=== PATIENT | female | born 1985 | race Caucasian/White ===

== ENCOUNTER 2018-09-07 04:40 | Inpatient (IN) ==
[2018-09-05 15:38] LABS: BASO# 0.02 X1000 (0.0-0.2); BASO% 0.2 % (0.0-0.8); EOS# 0.04 X1000 (0.0-0.7); EOS% 0.4 % (0.0-10.0); HEMATOCRIT 34.9 % (37.0-47.0); HEMOGLOBIN 11.2 g/dL (12.0-16.0); IMM GRAN# 0.04 X1000 (0.0-0.04); IMM GRAN% 0.4 % (0.0-0.5); LYMPH# 2.69 X1000 (1.2-3.4); LYMPH% 24.1 % (20.5-51.1); MCH 27.9 PG (27-31); MCHC 32.1 g/dL (33-37); MCV 86.8 FL (81-99); MONO# 0.47 X1000 (0.11-0.59); MONO% 4.2 % (1.7-9.3); MPV 9.8 FL (7.4-10.4); NEUT# 7.88 X1000 (1.4-6.5); NEUT% 70.7 % (42.2-75.2); PLT 290 X1000 (130-400); RBC 4.02 XMIL (4.2-5.4); RDW 13.2 % (11.5-14.5); WBC 11.14 X1000 (4.8-10.8)
--- NOTE | 2018-09-06 10:52 | HISTORY AND PHYSICAL ---
HISTORY OF PRESENT ILLNESS: The patient is a 32-year-old, white female, G 3, P 2, at 39 weeks gestation for repeat section. She has a history of 2 prior sections. The patient's care is unremarkable so far, and she has expressed the desire for permanent sterilization. PAST MEDICAL HISTORY: Significant for PTSD, which she has been on treatment for in the past. PAST SURGICAL HISTORY: Significant for section x2, as well as left leg tumor removal that was benign. PAST OBSTETRICAL HISTORY: G3, P2, x2. GYNECOLOGICAL HISTORY: Menarche at age 16. FAMILY HISTORY: Significant for diabetes mellitus and myocardial infarction. SOCIAL HISTORY: Tobacco use: Half a pack per day of tobacco. Alcohol use: None. MEDICATIONS: Iron, vitamins, and Pepcid. ALLERGIES: No known drug allergies. PHYSICAL EXAMINATION: Height: 5 feet 2 inches. Weight: 148 pounds. VITAL SIGNS: Blood pressure 142/86, pulse of 84, respirations 20. heart rate in the 150s. HEENT: Pupils equal, round, reactive to light and accommodation. Extraocular movements intact. Oropharynx clear. NECK: Supple. No thyromegaly. LUNGS: Clear to auscultation. HEART: Regular rate and rhythm. ABDOMEN: Gravid. Nontender. EXTREMITIES: No clubbing, cyanosis, or edema noted. NEUROLOGIC: Cranial nerves 2-12 grossly intact. Motor 5/5. ASSESSMENT AND PLAN: A 32-year-old, white female, G 3, P 2, at 39 weeks gestation with a history of section x2 for repeat section as well as tubal ligation. The patient counseled about the risks of surgery including bleeding, infection, bowel or bladder injury. The patient also counseled about the permanency of tubal ligation, failure rate of 2 to 11/999, as well as the availability of reversible alternatives such as IUD, control pills, patches, etc. Surgery is scheduled for 09/07/2018. cc: Cordell Christianson III, MD
[2018-09-07] MEDS ORDERED: KEFZOL 1 GM/D5W 1 GM/50 ML IVPB IV PRN (04:54)
[2018-09-07] MEDS: LR 1,000 ML IV SCH ×2 (05:20→06:41)
[2018-09-07 05:27] LABS: URINE SOURCE VOIDED
[2018-09-07] MEDS ORDERED: BICITRA PO ONE (05:30)
[2018-09-07] MEDS ORDERED: REGLAN IV ONE (05:30)
[2018-09-07] MEDS ORDERED: SODIUM CHLORIDE 0.9% INJ ONE (05:30)
[2018-09-07] MEDS ORDERED: PEPCID IV ONE (05:30)
[2018-09-07 05:51] LABS: BILIRUBIN URINE NEGATIVE (NEGATIVE); BLOOD URINE NEGATIVE (NEGATIVE); CLARITY CLEAR (CLEAR); COLOR YELLOW; GLUCOSE URINE NEGATIVE (NEGATIVE); KETONE URINE NEGATIVE (NEGATIVE); LEUKOCYTES URINE 2+ (NEGATIVE); NITRITE URINE NEGATIVE (NEGATIVE); PROTEIN URINE NEGATIVE (NEGATIVE); UROBILINOGEN URINE NORMAL
[2018-09-07 05:52] LABS: UR AMPHETAMINES QUAL NONE DETECTED (NONE DETECT); UR BARBITUATES QUAL NONE DETECTED (NONE DETECT); UR BENZODIAZEPIN QUAL NONE DETECTED (NONE DETECT); UR CANNABINOIDS QUAL NONE DETECTED (NONE DETECT); UR COCAINE QUAL NONE DETECTED (NONE DETECT); UR METHADONE QUAL NONE DETECTED (NONE DETECT); UR METHAMPHETAMINE QUAL NONE DETECTED (NONE DETECT); UR OPIATES QUAL NONE DETECTED (NONE DETECT); UR OXYCODONE QUAL NONE DETECTED (NONE DETECT); UR PCP QUAL NONE DETECTED (NONE DETECT); UR PROPOXYPHENE QUAL NONE DETECTED (NONE DETECT); UR TCA QUAL NONE DETECTED (NONE DETECT)
[2018-09-07] MEDS ORDERED: DURAMORPH ONE (07:05)
[2018-09-07] MEDS ORDERED: TORADOL ONE (08:05)
[2018-09-07] MEDS ORDERED: SODIUM CHLORIDE 0.9% 10 ML ONE (08:05)
[2018-09-07] MEDS ORDERED: NEO-SYNEPHRINE ONE (08:05)
[2018-09-07] MEDS ORDERED: PITOCIN ONE ×2 (08:05→20:27)
[2018-09-07] MEDS ORDERED: ZOFRAN ONE (08:05)
[2018-09-07] MEDS ORDERED: ATARAX PO PRN (08:39)
[2018-09-07] MEDS ORDERED: PITOCIN 20 UNITS/NS 20 UNITS/1,000 ML IV.SOLN IV ONE (08:39)
[2018-09-07] MEDS ORDERED: BOOSTRIX VACCINE IM ONE (08:39)
[2018-09-07] MEDS ORDERED: PITOCIN IM PRN (08:39)
[2018-09-07] MEDS ORDERED: MYLICON PO PRN (08:39)
[2018-09-07] MEDS ORDERED: M-M-R II VACCINE SUBQ ONE (08:39)
[2018-09-07] MEDS ORDERED: PHENERGAN IM PRN (08:39)
[2018-09-07] MEDS ORDERED: NORCO-5 PO PRN (08:39)
[2018-09-07] MEDS ORDERED: HYDROXYZINE IM PRN (08:39)
[2018-09-07] MEDS ORDERED: DEMEROL PO PRN (08:39)
[2018-09-07] MEDS ORDERED: DULCOLAX PR PRN (08:39)
[2018-09-07] MEDS ORDERED: AMBIEN PO PRN (08:39)
[2018-09-07] MEDS ORDERED: PITOCIN 10 UNITS/LR 10 UNIT/1,000 ML IV.SOLN IV SCH (08:45)
[2018-09-07] MEDS ORDERED: BENADRYL IV PRN (08:52)
[2018-09-07] MEDS ORDERED: NARCAN INJ PRN (08:52)
[2018-09-07] MEDS ORDERED: ZOFRAN ODT PO PRN (08:52)
[2018-09-07] MEDS ORDERED: ZOFRAN IV PRN ×2 (08:52)
--- NOTE | 2018-09-07 09:02 | OPERATIVE NOTE ---
PROCEDURE DATE: 09/07/2018 PREOPERATIVE DIAGNOSIS: Intrauterine at 39-0/7 weeks for repeat section as well as tubal ligation. POSTOPERATIVE DIAGNOSES: 1. Intrauterine at 39-0/7 weeks for repeat section as well as tubal ligation. 2. Operative delivery of a female, 5 pounds 12 ounces with Apgars of 9 and 10 at 0746 on 09/07/2018. PROCEDURE PERFORMED: 1. Repeat low transverse section. 2. Bilateral tubal ligation. SURGEON: Cordell Christianson III, MD. ASSIST: Sidra Jenkins RN. ANESTHESIA: Spinal, Dr. Eron MD. FINDINGS: Normal-appearing uterus, tubes, and ovaries. COMPLICATIONS: None. ESTIMATED BLOOD LOSS: 400 mL. SPECIMENS REMOVED: Right and left fallopian tube segments. DRAINS: Jackson to straight drain. COUNTS: All counts were correct x3. INDICATIONS: Patient is a 32-year-old white female G3, P2, at 39 weeks gestation with a history of prior section x2. Patient also expressed desire for permanent sterilization. She has signed Medicaid tubal papers, and we will perform this after her section. Patient counseled about the permanency of the procedure, failure rate of 2 to 11/999, as well as the availability of reversible alternatives such as IUD, control pills patches, etc. The patient also counseled about the risks of surgery including bleeding, infection, bowel, or bladder injury. DESCRIPTION OF PROCEDURE: The patient was taken to OB OR. Spinal anesthesia was placed. The patient was placed in supine position. She was then prepped and draped in a sterile fashion with placement of Jackson catheter, and adequate anesthesia was noted by using Allis clamps on skin. Then a Pfannenstiel skin incision made on lower abdomen using scalpel. This was then taken down sharply through the fascial layer. Small rashi was made in the rectus fascia. The rectus fascia was then extended bilaterally by curved Tipton scissors, and then blunt and sharp dissection of the rectus fascia was performed using electrocautery and the superior and inferior aspects of the rectus fascia. The rectus muscles divided in the midline. Peritoneal layer was entered bluntly. The peritoneal incision was extended superiorly and inferiorly with care taken to avoid the bladder. The bladder reflection was dissected with Metzenbaum scissors and then bladder blade was placed into the abdominal cavity. The low transverse incision was made on the uterus, and then this incision was then extended bilaterally by the surgeon's fingers. A small amount of light meconium was noted upon entry into the amniotic cavity. head was then elevated toward the hysterotomy site and with gentle fundal pressure, the head was delivered atraumatically. Bulb suction of nose and mouth. Then the rest the body was delivered atraumatically with gentle fundal pressure. The umbilical cord was clamped twice and cut. handed to nursery nurse in attendance for delivery. Cord blood samples obtained at this time. Placenta was then manually extracted. Uterus was exteriorized. Wet lap was placed around the uterus. Dry lap was then used to curette the uterine cavity of clots and debris x2. The uterine incision was then closed using 0 chromic in a running, locking fashion x1. A small area of oozing was noted on the left corner. This was made hemostatic with interrupted stitches of 0 chromic. At this point in time, the right fallopian tube was grasped with a Carlos clamp and then a small area in the mesosalpinx was penetrated using electrocautery and then #1 plain suture was then used to ligate a portion of the fallopian tube on the right side, and then this segment was then dissected using Metzenbaum scissors and handed over to be placed in a specimen container. Electrocautery was then used on the open ends of the fallopian tube as well as on the mesosalpinx, and good hemostasis was noted. On the left fallopian tube, this was grasped with a [place] clamp and then the area of the mesosalpinx was penetrated using electrocautery, and then #1 plain suture was then used to ligate dissection near the isthmus. This section was then excised using Metzenbaum scissors, and this portion was also handed off to be placed in a specimen container. Electrocautery was once again used on the open ends of the fallopian tube, and good hemostasis was noted here as well. The posterior cul-de-sac was then irrigated copiously. The uterus was then replaced back into the abdominal cavity. Good hemostasis was noted once again, where tubal ligation was performed, and then moistened lap sponges were used in the pericolic gutters bilaterally. Uterine incision and bladder reflection were inspected, and good hemostasis was noted. The fascial incision was then closed using 2-0 chromic in a running fashion x1. Two interrupted sutures placed in the rectus muscle to reapproximate this. Fascial layer was then closed using 0 PDS in a running fashion x1. Electrocautery was and irrigation were used in the subcutaneous tissue, and good hemostasis was noted. The skin was reapproximated using radha. Patient tolerated the procedure well, was taken to recovery in stable condition. All counts were correct x3. cc: Cordell Christianson III, MD
[2018-09-07] MEDS: PRECARE PO SCH (10:57)
[2018-09-07] MEDS: MYLICON PO SCH ×4 (10:57→20:33)
[2018-09-07] MEDS: TORADOL IV SCH ×3 (10:57→21:34)
[2018-09-07] MEDS: MORPHINE IV PRN ×2 (12:51→18:22)
[2018-09-07] MEDS ORDERED: OXYTOCIN ONE (20:26)
[2018-09-07] MEDS ORDERED: SODIUM CHLORIDE ONE (20:26)
[2018-09-07] MEDS ORDERED: LR 1,000 ML ONE (20:28)
[2018-09-07] MEDS: PERICOLACE PO SCH (20:33)
[2018-09-07] MEDS: CELEXA PO SCH (20:33)
[2018-09-08] MEDS: MORPHINE IV PRN (05:23)
[2018-09-08] MEDS: TORADOL IV SCH (05:23)
[2018-09-08 05:39] LABS: BASO# 0.02 X1000 (0.0-0.2); BASO% 0.1 % (0.0-0.8); EOS# 0.05 X1000 (0.0-0.7); EOS% 0.3 % (0.0-10.0); HEMOGLOBIN 9.5 g/dL (12.0-16.0); IMM GRAN# 0.05 X1000 (0.0-0.04); IMM GRAN% 0.3 % (0.0-0.5); LYMPH# 2.37 X1000 (1.2-3.4); MCH 28.2 PG (27-31); MCHC 31.7 g/dL (33-37); MONO# 0.65 X1000 (0.11-0.59); MONO% 4.1 % (1.7-9.3); MPV 10.1 FL (7.4-10.4); NEUT# 12.61 X1000 (1.4-6.5); NEUT% 80.2 % (42.2-75.2); PLT 252 X1000 (130-400); RBC 3.37 XMIL (4.2-5.4); RDW 13.6 % (11.5-14.5); WBC 15.75 X1000 (4.8-10.8)
[2018-09-08] MEDS: PRECARE PO SCH (08:17)
[2018-09-08] MEDS: NORCO-10 PO PRN ×4 (08:17→23:10)
[2018-09-08] MEDS: MYLICON PO SCH ×4 (08:18→20:56)
[2018-09-08] MEDS ORDERED: LR 1,000 ML IV SCH (08:39)
[2018-09-08] MEDS: MOTRIN PO PRN ×2 (12:42→20:55)
[2018-09-08] MEDS: CELEXA PO SCH (20:55)
[2018-09-08] MEDS: PERICOLACE PO SCH (20:55)
[2018-09-08] MEDS ORDERED: SSD CREAM TOP SCH (21:00)
[2018-09-09] MEDS: NORCO-10 PO PRN (06:44)
[2018-09-09 07:23] VITALS: BP 138/86
[2018-09-09] MEDS ORDERED: PNEUMOVAX 23 IM ONE (08:30)
[2018-09-09] MEDS ORDERED: FLU VACCINE IM ONE (08:30)
[2018-09-09] MEDS: MYLICON PO SCH (09:19)
[2018-09-09] MEDS: PRECARE PO SCH (09:19)
--- NOTE | 2018-09-10 08:33 | DISCHARGE SUMMARY ---
ADMISSION DATE: 09/07/2018 DISCHARGE DATE: 09/09/2018 ADMISSION DIAGNOSIS: Intrauterine at 39 weeks gestation with history of section times 2 for repeat section. ADDITIONAL DIAGNOSIS: Desires permanent sterilization. FINAL DIAGNOSES: 1. Intrauterine at 39 weeks gestation with history of section times 2 for repeat section. 2. Desires permanent sterilization. 3. Operative delivery of a female infant, 5 pounds 12 ounces with Apgars of 9 and 10 at 0746 hours on 09/07/2018. PROCEDURES: Repeat low transverse and bilateral tubal ligation. BRIEF HISTORY: The patient is a 32-year-old white female, G 3, P 2, at 39 weeks gestation for repeat . Patient has a history of 2 prior C-sections. The patient's care unremarkable to date, and has also expressed desire for permanent sterilization. So, she has signed Medicaid tubal papers. PAST MEDICAL HISTORY: Significant for PTSD which she has been on treatment for in the past. PAST SURGICAL HISTORY: x2, she had a left leg tumor removed that she reports as benign. PAST OB HISTORY: G 3, P 2, x2. [employer] HISTORY: Menarche at age 16. FAMILY HISTORY: Significant for diabetes mellitus and myocardial infarction. SOCIAL HISTORY: Tobacco use. The patient reports a half pack per day. Alcohol use: None. MEDICATIONS: Iron, vitamins and Pepcid. ALLERGIES: No known drug allergies. PHYSICAL EXAMINATION: Vital Signs: Blood pressure 142/86, pulse of 84, respirations 20. heart rate in the 150s. Height 5 feet 2 inches, weight 148 pounds. HEENT: Pupils equal, round, reactive to light and accommodation. Extraocular movements intact. Oropharynx clear. Neck: Supple. No thyromegaly. Lungs: Clear to auscultation. Heart: Regular rate and rhythm. Abdomen: Gravid, nontender. Extremities: No clubbing, cyanosis, or edema noted. Neurologic: Cranial nerves 2-12 grossly intact. Motor 5/5. ASSESSMENT AND PLAN: A 32-year-old white female, G 3, P 2, at 39 weeks gestation with history of prior section times 2 for a repeat section, as well as tubal ligation. Patient counseled about the risks of surgery, including bleeding, infection, bowel or bladder injury. The patient also counseled about the permanency of tubal ligation, failure rate of 2 to 11/999, as well as the availability of reversible alternatives such as intrauterine devices, control pills, patches, etc. HOSPITAL COURSE: On the morning of 09/07/2018, the patient had an operative delivery of a female 5 pounds 12 ounces, Apgars of 9 and 10 at 0746 hours on 09/07/2018. At the same time, patient had tubal ligation performed. Postoperative course: Patient did well. Was advanced on her diet as tolerated and became ambulatory. Her postoperative hemoglobin and hematocrit were 9.5 and 30.0. On postoperative day #2, had stable vital signs, was afebrile and had passed flatus. When asked, had decided that she wished to go home. DISCHARGE INSTRUCTIONS: The patient will be discharged home. Follow up on 09/14/2018 for staple removal and postoperative check. The patient given instructions on pelvic rest and lifting precautions for 6 weeks. Patient to call for temperature greater than 101, heavy vaginal bleeding, or severe abdominal pain. Patient given prescriptions for [place] 10, dispensed 20 with no refills, Colace 100 mg, Motrin 800 mg, iron sulfate 325 mg, and Celexa 20 mg. cc: Cordell Christianson III, MD
== END 2018-09-09 10:15 | disposition home or self-care (01) | DRG 785 ==
LOC: P.LD 04:40
PROVIDERS: ADMIT Obstetrics & Gynecology; ATTEND Obstetrics & Gynecology
CPT/HCPCS: 80104; 80301; 80305; 81003; 85025; 86592; 86850; 86900; 86901; 90686; 90707; 90715; 90732; A9270; G0431; G0434; G0477; J0690; J1200; J1885; J2270; J2274; J2275; J2370; J2405; J2590; J2765; J7120; Q9974; S0028